=== PATIENT | female | born 1930 | race Caucasian/White ===

== ENCOUNTER 2020-07-29 17:32 | Inpatient (IN) | payer OTHER, MEDICARE ==
[~2020-07-29] VITALS: Ht 30.5 cm; Wt 60.4 kg
[2020-07-29] MEDS ORDERED: hydrALAZINE HCL 20 MG/ML VL IV PRN (23:45)
[2020-07-30] VITALS (10 sets, daily range): BP systolic 128–156; BP diastolic 64–97
[2020-07-30] MEDS ORDERED: NITROGLYCERIN 0.4 MG SL TAB SL PRN ×2
[2020-07-30] MEDS ORDERED: MORPHINE SULF INJ 2 MG/ML SYRINGE 1ML IV PRN ×2
[2020-07-30] MEDS ORDERED: HYDROcodone-ACET 5/325MG TAB PO PRN
[2020-07-30] MEDS: SODIUM CHLORIDE 0.9% 1,000 ML IV SCH ×3 (00:37→15:45)
[2020-07-30 01:13] LABS: Eosinophils # (auto) 0.1 10 ^3/uL (0-0.8); Hemoglobin 13.5 g/dL (12.2-16.2); Lymphocytes # (auto) 1.7 10 ^3/uL (0.4-5.4)
[2020-07-30 01:15] LABS: Basophils # (auto) 0.2 10 ^3/uL (0-0.2); Basophils % (auto) 1.3 % (0.0-2.0); Eosinophils % (auto) 1.1 % (0.0-7.0); Lymphocytes % (auto) 13.9 % (10.0-50.0); Mean Corpuscular Hgb Conc. 33.8 g/dL (32.0-36.0); Mean Corpuscular Volume 91.6 fL (80.0-100.0); Monocytes # (auto) 0.9 10 ^3/uL (0-1.3); Monocytes % (auto) 7.9 % (0.0-12.0); Neutrophils # (auto) 9.1 10 ^3/uL (1.6-8.6); Neutrophils % (auto) 75.8 % (37.0-80.0); Nucleated Red Blood Cells % 0.2 %; Red Blood Cells 4.37 10^6/uL (4.0-5.20); Red Cell Distribution Width 14.1 % (11.8-14.3)
[2020-07-30 01:18] LABS: Platelet Count (auto) 818 10^3/uL (140-450)
[2020-07-30 01:32] LABS: BUN/Creatinine Ratio 19.4; Calcium 8.7 mg/dL (8.5-10.1); Potassium 3.6 mmol/L (3.5-5.1)
[2020-07-30] MEDS ORDERED: ANAG0.5C2 PO (04:57)
[2020-07-30] MEDS ORDERED: ROSU5TAB5 PO (04:57)
[2020-07-30] MEDS ORDERED: LOSA-69 PO (04:57)
[2020-07-30] MEDS ORDERED: FURO20TA3 PO (04:57)
[2020-07-30] MEDS ORDERED: AMLO-489 PO (04:57)
[2020-07-30] MEDS ORDERED: METO25TA5 PO (04:57)
[2020-07-30] MEDS: SODIUM CHLOR 0.9% PF (SALINE LOCK) 10ML VIAL/SYR IV SCH ×3 (05:20→20:55)
[2020-07-30] MEDS ORDERED: IOHEXOL 350 MG/ML 100ML IJ ONE (08:50)
[2020-07-30] MEDS: ASPirin 81 mg TAB PO SCH (10:17)
[2020-07-30] MEDS ORDERED: LIDOCAINE 2%HCL (LOCAL ANESTH.) INJ 20ML MDV ONE (11:16)
[2020-07-30] MEDS ORDERED: MIDAZOLAM HCL 1MG/1ML-2 ML VIAL ONE (11:16)
[2020-07-30] MEDS ORDERED: VERAPAMIL 2.5MG/ML INJ 2ML VIAL IV ONE (11:16)
[2020-07-30] MEDS ORDERED: fentaNYL CITRATE 100 MCG/2 ML VL ONE (11:16)
[2020-07-30] MEDS ORDERED: ANGIOMAX 250 MG VIAL IV ONE (11:16)
[2020-07-30] MEDS ORDERED: SODIUM CHL 0.9% 0 ML ONE (11:16)
[2020-07-30] MEDS ORDERED: HEPARIN SODIUM (PORCINE) 5000 UNITS/ML 1ML VIAL ONE (11:16)
[2020-07-30] MEDS ORDERED: IODIXANOL 320MG/ML 100ML BTL IV ONE (11:17)
[2020-07-30] MEDS: ESOMEPRAZOLE 40 MG/5ml VIAL INJ IV SCH (14:27)
[2020-07-30] MEDS ORDERED: ALUM & MAG HYDROX-SIMETH LIQ(MAALOX) 30 ML PO PRN (14:30)
[2020-07-30] MEDS: ATORVASTATIN 20 MG TAB PO SCH (20:56)
[2020-07-31] MEDS: SODIUM CHLORIDE 0.9% 1,000 ML IV SCH ×4 (00:03→21:09)
[2020-07-31 05:00] VITALS: BP 147/70
[2020-07-31] MEDS: SODIUM CHLOR 0.9% PF (SALINE LOCK) 10ML VIAL/SYR IV SCH ×3 (05:53→21:09)
[2020-07-31] MEDS ORDERED: FURO20TA3 PO (08:37)
[2020-07-31] MEDS ORDERED: METO25TA5 PO (08:37)
[2020-07-31] MEDS ORDERED: LOSA-69 PO (08:37)
[2020-07-31] MEDS ORDERED: CHOL20004 PO (08:39)
[2020-07-31 09:00] VITALS: BP 133/68
[2020-07-31 10:18] LABS: Basophils # (auto) 0.1 10 ^3/uL (0-0.2); Hemoglobin 13.5 g/dL (12.2-16.2)
[2020-07-31 10:19] LABS: Basophils % (auto) 0.6 % (0.0-2.0); Eosinophils # (auto) 0.1 10 ^3/uL (0-0.8); Eosinophils % (auto) 1.3 % (0.0-7.0); Hematocrit 40.1 % (36.0-46.0); Lymphocytes # (auto) 1.3 10 ^3/uL (0.4-5.4); Lymphocytes % (auto) 11.4 % (10.0-50.0); Mean Corpuscular Hemoglobin 31.1 pg (28.0-32.0); Mean Corpuscular Hgb Conc. 33.7 g/dL (32.0-36.0); Mean Corpuscular Volume 92.1 fL (80.0-100.0); Monocytes # (auto) 0.9 10 ^3/uL (0-1.3); Monocytes % (auto) 7.8 % (0.0-12.0); Neutrophils # (auto) 8.7 10 ^3/uL (1.6-8.6); Neutrophils % (auto) 78.9 % (37.0-80.0); Nucleated Red Blood Cells % 0.1 %; Platelet Count (auto) 746 10^3/uL (140-450); Red Blood Cells 4.35 10^6/uL (4.0-5.20)
[2020-07-31] MEDS: ASPirin 81 mg TAB PO SCH (10:31)
[2020-07-31 10:39] LABS: Albumin 3.1 g/dL (3.4-5.0); Calcium 9.1 mg/dL (8.5-10.1); Magnesium 2.8 mg/dL (1.6-2.6); Potassium 3.6 mmol/L (3.5-5.1)
[2020-07-31 10:44] LABS: BUN/Creatinine Ratio 16.3; Bilirubin, Total 0.5 mg/dL (0.2-1.0); Total Protein 6.5 g/dL (6.4-8.2)
[2020-07-31] MEDS: ESOMEPRAZOLE 40 MG/5ml VIAL INJ IV SCH (11:55)
[2020-07-31 13:00] VITALS: BP 141/66
[2020-07-31 17:00] VITALS: BP 147/71
[2020-07-31] MEDS: ATORVASTATIN 20 MG TAB PO SCH (21:09)
[2020-07-31 21:47] VITALS: BP 146/70
[2020-08-01 05:00] VITALS: BP 147/75
[2020-08-01] MEDS: SODIUM CHLOR 0.9% PF (SALINE LOCK) 10ML VIAL/SYR IV SCH ×3 (06:02→22:23)
[2020-08-01 08:57] VITALS: BP 151/71
[2020-08-01] MEDS: ASPirin 81 mg TAB PO SCH (10:47)
[2020-08-01] MEDS: ESOMEPRAZOLE 40 MG/5ml VIAL INJ IV SCH (10:48)
[2020-08-01] MEDS: hydroxyUREA 500 MG CAP PO SCH (10:49)
[2020-08-01 13:00] VITALS: BP 131/70
[2020-08-01] MEDS: SODIUM CHLORIDE 0.9% 1,000 ML IV SCH ×3 (13:17→23:05)
[2020-08-01 17:00] VITALS: BP 146/63
[2020-08-01 22:00] VITALS: BP 147/78
[2020-08-01] MEDS: ATORVASTATIN 20 MG TAB PO SCH (22:23)
[2020-08-01 22:34] VITALS: BP 147/78
[2020-08-02 05:00] VITALS: BP 159/71
[2020-08-02] MEDS: SODIUM CHLOR 0.9% PF (SALINE LOCK) 10ML VIAL/SYR IV SCH ×2 (05:37→15:50)
[2020-08-02 06:42] VITALS: BP 147/69
[2020-08-02] MEDS: SODIUM CHLORIDE 0.9% 1,000 ML IV SCH ×2 (07:45→16:00)
[2020-08-02 09:00] VITALS: BP 142/69
[2020-08-02] MEDS: ESOMEPRAZOLE 40 MG/5ml VIAL INJ IV SCH (11:42)
[2020-08-02] MEDS: ASPirin 81 mg TAB PO SCH (11:42)
[2020-08-02] MEDS: hydroxyUREA 500 MG CAP PO SCH (11:43)
[2020-08-02 12:47] VITALS: BP 129/81
[2020-08-02 17:00] VITALS: BP 140/67
[2020-08-02 17:46] VITALS: BP 140/67
== END 2020-08-02 19:30 | disposition home or self-care (01) | DRG 445 ==
LOC: TELE-EAST 22:43
PROVIDERS: ADMIT Specialist; ATTEND Specialist
PROC: 4A023N7 Measurement of Cardiac Sampling and Pressure, Left Heart, Percutaneous Approach (ICD-10-PCS; principal; 2020-07-30)
PROC: B211YZZ Fluoroscopy of Multiple Coronary Arteries using Other Contrast (ICD-10-PCS; 2020-07-30)
PROC: B215YZZ Fluoroscopy of Left Heart using Other Contrast (ICD-10-PCS; 2020-07-30)
DX: K82.8 Other specified diseases of gallbladder (principal); I25.110 Atherosclerotic heart disease of native coronary artery with unstable angina pectoris; K21.9 Gastro-esophageal reflux disease without esophagitis; E11.40 Type 2 diabetes mellitus with diabetic neuropathy, unspecified; D47.3 Essential (hemorrhagic) thrombocythemia; E78.5 Hyperlipidemia, unspecified; I11.0 Hypertensive heart disease with heart failure; I50.9 Heart failure, unspecified; K44.9 Diaphragmatic hernia without obstruction or gangrene; Z20.822 Contact with and (suspected) exposure to COVID-19; Z80.8 Family history of malignant neoplasm of other organs or systems; Z82.3 Family history of stroke; Z82.49 Family history of ischemic heart disease and other diseases of the circulatory system; Z83.3 Family history of diabetes mellitus; Z86.73 Personal history of transient ischemic attack (TIA), and cerebral infarction without residual deficits; Z87.891 Personal history of nicotine dependence; R91.1 Solitary pulmonary nodule
CPT/HCPCS: 36415; 70490; 71045; 71275; 76705; 80048; 80053; 83735; 85025; 85730; 87081; 87426; 93458; 93886; G0378; J2250; Q9967

== ENCOUNTER → 2020-10-18 | Outpatient (CLI) | payer MEDICARE ==
[~2020-10-18] MED LIST: AMLO-489 PO; ANAG0.5C2 PO; CHOL20004 PO; FURO20TA3 PO; LOSA-69 PO; METO25TA5 PO; ROSU5TAB5 PO
[2020-10-18 16:35] LABS: Urine Bacteria FEW /hpf (None Seen); Urine Blood Negative /uL (Negative); Urine Specific Gravity 1.012 (1.001-1.035); Urine WBC 5 /hpf (0 - 5)
== END | disposition home or self-care (01) ==
LOC: LAB 16:18
PROVIDERS: ATTEND Internal Medicine Gastroenterology
DX: R30.0 Dysuria (principal)
CPT/HCPCS: 81001; 87086